=== PATIENT | female | born 1965 | race Caucasian/White ===

== ENCOUNTER 2024-09-14 10:05 | Day surgery (SDC) | payer BC, SELFPAY ==
[2024-09-14] VITALS (11 sets, daily range): BP systolic 104–145; BP diastolic 80–100; PULSE 59–71; RESP 14–20; TEMP 36.1–36.3; O2SAT 97–199; BMI 19.6
[2024-09-14] MEDS: LACTATED RINGERS 1000 ML 1,000 ML 100 ML IV (10:40)
[2024-09-14] MEDS: SODIUM CHLORIDE 0.9 % (FLUSH) 10 ML SYRINGE IVF (10:42)
--- NOTE | 2024-09-14 11:21 | W.PM.H&PU ---
History & Physical Update History & Physical Update H&P Reviewed and patient assessed: No changes noted
[2024-09-14] MEDS: CEFAZOLIN 1 GM inj IVP (11:50)
[2024-09-14] MEDS: LIDOCAINE 1%-EPI 1:100,000 20 ML INFILTRATI (12:05)
[2024-09-14] MEDS: BUPIVACAINE 0.25% 30 ML INJECTION (12:05)
--- NOTE | 2024-09-14 12:21 | P.ANES_ITS ---
Anesthesia Charges Start Date/Time Anesthesia Start Date: 09/14/24 Anesthesia Start Time: 11:33 Stop Date/Time Anesthesia Stop Date: 09/14/24 Anesthesia Stop Time: 12:35 Coding CPT Codes CPT Codes: ANESTH HEAD/NECK/PTRUNK - 95110 ([id number]) P1 - NORMAL HEALTHY PATIENT, QK - FACILITIES OFFICER 2-4 CNCRNT ANES PROC, QX - DEAF/HARD OF HEARING SPECIALIST SVSaad W/ MED DIRECTION
--- NOTE | 2024-09-14 12:21 | W.ANESCHARGE ---
Anesthesia Charges Start Date/Time Anesthesia Start Date: 09/14/24 Anesthesia Start Time: 11:33 Stop Date/Time Anesthesia Stop Date: 09/14/24 Anesthesia Stop Time: 12:35 Coding CPT Codes CPT Codes: ANESTH HEAD/NECK/PTRUNK - 76287 ([id number]) P1 - NORMAL HEALTHY PATIENT, QK - WELFARE ADMINISTRATOR 2-4 CNCRNT ANES PROC, QX - PERSONNEL RECRUITER SVSaad W/ MED DIRECTION
--- NOTE | 2024-09-14 12:28 | P.GSOP_ITS ---
Operative Note Date of procedure: 09/14/24 Pre-op diagnosis: 1. Enlarging right posterior neck mass. Post-op diagnosis: 1. Right posterior neck lipoma. Type of Procedure: 1. Excision of right posterior neck lipoma. Indications: 59-year-old female was seen in clinic for evaluation of an enlarging right posterior neck mass. The mass was initially noticed 15 years ago and with time was increasing in size. It was occasionally painful. Due to the growing nature, patient requested removal of the mass. On clinical exam in the right posterior neck there is a slightly larger than a quarter sized soft tissue mass slightly protruding about the level of the skin. It seemed to have limited mobility and was attached to the deep tissues. Given patient's clinical history and physical exam, excision of this mass for diagnostic and therapeutic purposes in the operating room was recommended. The procedure was discussed in detail. The risks associated procedure including infection, bleeding, and possible recurrence were all discussed with the patient, and she agreed to proceed. Procedure Description: After discussing the risks and benefits of the procedure, the patient signed informed consent.? The operative site was marked and the patient was brought to the operating room. Patient was intubated by Anesthesia. Patient was then placed prone on the operating table with all pressure points padded. The operative site was then prepped and draped in the usual sterile fashion.? A neli e-out was then performed. A horizontal elliptical skin incision was made with a scalpel over the right posterior neck mass. Subcutaneous tissues were divided with cautery. The mass was identified in subcutaneous space and circumferentially dissected from subcutaneous fat with cautery. The mass was tightly adherent to the muscle fascia and was shaved off the muscle fascia with cautery. The mass was then removed. It was measuring 3.5 x 3.5 cm and had an appearance of lipoma. This was sent to pathology. Hemostasis was achieved with cautery. Local anesthetic was injected at the surgical site. Subcutaneous fat and skin was then reapproximated in layers with interrupted 2-0 and 3-0 Vicryl sutures. The skin was closed with a running 4-0 Monocryl stitch. The length of the incision was 4.5 cm. Dermabond was placed over the incision. Sterile dressings were then applied. Pressure dressing was placed over the incision and secured in place with tape. All counts were correct at the end of the case. The patient was then woken and transported to the recovery area in stable condition. ? The patient tolerated the procedure well. Findings: Subcutaneous lipoma attached to the muscle fascia. Anesthesia: GETA Surgeon: Gloria Nieves MD Estimated blood loss (mL): 5 Additional Specimen Information: 1. Right posterior neck mass. Condition: stable Disposition: PACU
[2024-09-14] MEDS: ONDANSETRON 2 MG/ML inj 4 MG IVP (12:33)
--- NOTE | 2024-09-14 12:45 | P.ANES_ITS ---
Anesthesia Charges Start Date/Time Anesthesia Start Date: 09/14/24 Anesthesia Start Time: 11:33 Stop Date/Time Anesthesia Stop Date: 09/14/24 Anesthesia Stop Time: 12:35 Coding CPT Codes CPT Codes: ANESTH HEAD/NECK/PTRUNK - 31596 ([id number]) P1 - NORMAL HEALTHY PATIENT, QK - WHEEL FITTER 2-4 CNCRNT ANES PROC, QX - TELECASTING TECHNICIAN SVSaad W/ MED DIRECTION
--- NOTE | 2024-09-14 12:45 | W.ANESCHARGE ---
Anesthesia Charges Start Date/Time Anesthesia Start Date: 09/14/24 Anesthesia Start Time: 11:33 Stop Date/Time Anesthesia Stop Date: 09/14/24 Anesthesia Stop Time: 12:35 Coding CPT Codes CPT Codes: ANESTH HEAD/NECK/PTRUNK - 01700 ([id number]) P1 - NORMAL HEALTHY PATIENT, QK - RED CROSS WORKER 2-4 CNCRNT ANES PROC, QX - PAST DUE ACCOUNTS CLERK SVSaad W/ MED DIRECTION
== END 2024-09-14 14:02 | disposition home or self-care (01) ==
LOC: OR 10:05
PROVIDERS: Visit Provider Surgery
PROC: (CPT 21552; principal; 2024-09-14 11:45)
DX: D17.0 Benign lipomatous neoplasm of skin and subcutaneous tissue of head, face and neck (principal)
CPT/HCPCS: 21552; 00300; 88304; J0330; J0665; J0690; J2250; J2405; J2704; J3010; J3490; J7120

== ENCOUNTER 2024-11-08 08:18 | Outpatient (CLI) | payer BC, SELFPAY ==
--- NOTE | 2024-11-08 08:45 | CRLHL7_ITS ---
For Patients: As a result of the Century Cures Act, medical imaging exams and procedure reports are released immediately into your electronic medical record. You may view this report before your referring provider. If you have questions, please contact your health care provider. BILATERAL DIGITAL DIAGNOSTIC MAMMOGRAM WITH TOMOSYNTHESIS AND COMPUTER-AIDED DETECTION, 11/08/2024 LEFT BREAST ULTRASOUND, 11/08/2024 CLINICAL HISTORY: LEFT breast lump. COMPARISON: 12/11/2023. TECHNIQUE: Digital BILATERAL mammogram in four projections with computer-aided detection. Tomosynthesis was used in this interpretation. Real-time ultrasound imaging of LEFT breast with imaging documentation. BREAST COMPOSITION: There are scattered areas of fibroglandular density. FINDINGS: 3D CC/MLO bilateral mammogram images submitted. No suspicious masses or architectural distortion. No suspicious calcifications or adenopathy. Targeted left breast ultrasound performed at 7 o`clock 4 cm from the nipple. No fibrocystic change or solid mass. IMPRESSION: No suspicious findings. No evidence of malignancy. RECOMMENDATIONS: Routine screening mammography. A lay language report of this examination will be provided to the patient. BI-RADS Category 1 Negative Dictated by Romaine Duran MD @ 11/08/2024 9:16:59 AM/CRL:waqas PALOMO/Dictated by: Romaine Duran MD @ 11/08/2024 9:17:00 AM (Electronically Signed)
--- NOTE | 2024-11-08 09:15 | CRLHL7_ITS ---
For Patients: As a result of the Century Cures Act, medical imaging exams and procedure reports are released immediately into your electronic medical record. You may view this report before your referring provider. If you have questions, please contact your health care provider. PLEASE SEE BILATERAL DIAGNOSTIC MAMMOGRAM FOR ULTRASOUND REPORT JR/Dictated by: Romaine Duran MD @ 11/08/2024 9:17:00 AM (Electronically Signed)
== END 2024-11-08 08:19 | disposition home or self-care (01) ==
PROVIDERS: PCP Registered Nurse; Visit Provider Registered Nurse
DX: N63.20 Unspecified lump in the left breast, unspecified quadrant (principal); R92.8 Other abnormal and inconclusive findings on diagnostic imaging of breast
CPT/HCPCS: 76642; 77066; G0279

== ENCOUNTER 2025-01-17 09:18 | Outpatient (CLI) | payer BC, SELFPAY ==
[2025-01-19 01:46] LABS: HPV Source Cervix
[2025-01-20 16:23] LABS: Pap Test Digital Imaging Done
== END 2025-01-17 09:19 | disposition home or self-care (01) ==
PROVIDERS: Visit Provider Obstetrics & Gynecology
DX: Z00.00 Encounter for general adult medical examination without abnormal findings (principal); M81.0 Age-related osteoporosis without current pathological fracture; Z12.4 Encounter for screening for malignant neoplasm of cervix; Z11.51 Encounter for screening for human papillomavirus (HPV); Z13.6 Encounter for screening for cardiovascular disorders; Z13.29 Encounter for screening for other suspected endocrine disorder
CPT/HCPCS: 80053; 80061; 82306; 84443; 87624; 87625; 88141; 88142; 88175